=== PATIENT | female | born 1975 | race Caucasian/White ===

== ENCOUNTER → 2019-06-16 | Day surgery (SDC) | payer BC ==
[~2019-06-16] MED LIST: BCP PO; ESTARYLLA 0.251 EACH PO; FAMOTIDINE20 MG PO; FENTANYL CITRATE/PF 100MCG/2 ML INJ ONE; LIDOCAINE HCL 2% LOCAL INJ 5 ML SDV VIAL INJ ONE; MIDAZOLAM HCL 2 MG/2 ML VIAL ONE; OMEPRAZOLE40 MG PO; PROPOFOL IV EMULSION 10 MG/ML 20 ML VIAL ONE
--- OUTSIDE RECORDS SUMMARY | 2019-06-16 10:33 | XMS REPORT | Encounter Summary ---
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 Demetrio Gurrola 3 [phone] Reason for Visit heartburn/indigestion; diarrhea Instructions 1. Gastroesophageal reflux disease omeprazole 40 mg capsule,delayed release famotidine 40 mg tablet US, abdomen gastroesophageal reflux disease (GERD): care instructions gastroenterology referral 2. Body mass index 20-24 - normal Discussion Note: None recorded. Plan of Care Reminders Provider Appointments None recorded. Lab None recorded. Referral Gastroenterology Referral 04/07/2019 Procedures None recorded. Surgeries None recorded. Imaging US, Abdomen 04/07/2019 [facility] [place] [facility] [place] Medications Name Start Date famotidine 40 mg tablet Take 1 tablet every day by oral route in the evening for 30 days. [place]-Linyah 0.25 mg-35 mcg tablet Take 1 tablet every day by oral route. omeprazole 40 mg capsule,delayed release Take 1 capsule every day by oral route in the morning for 30 days. Medications Administered None recorded. Vitals Height Weight BMI Blood Pressure 5 ft 5 in 141 lbs 23.5 kg/m2 122/82 mm[Hg] Lab Results None recorded. Allergies Code Code System Name Reaction Severity Status Onset Azithromycin Hives Active 08/07/2015 Penicillins Nausea Active 08/07/2015 Problems Name Status Onset Date Source Glaucoma Active 07/20/2018 Procedures Date Name Performed by 08/23/2018 Breast Surgery Information not available 06/23/2018 Neck Spine Disk Surgery Information not available 08/23/2017 Other Information not available 08/23/2016 Breast Surgery Information not available 04/07/2019 US, Abdomen [facility] [place] [facility] [place] [address] [place] [address] (Work Place) Vaccine List Vaccine Type influenza, injectable, quadrivalent, preservative free 05/07/20170.5 mL 07/20/20180.5 mL Social History Tobacco Smoking Status Light Tobacco Smoker (1 PPW) Past Encounters 04/07/2019 Gastroesophageal Reflux Disease; Body Mass Index 20-24 - Normal Elisa Scruggs MD: [id number] [place] [address], Ph. History of Present Illness Note:43yo female presents for evaluation of stomach issues for past 4yrs. Has tested positive for H pylori in the past - treated with Abx three times. Has never been retested. Last treated in January 2018 for H pylori & feels that stomach never fully recovered.<div>"My stomach hurts all the time". After eating has to go to the bathroom. Has been having diarrhea for the past 2mo. Not constipated, but going small amounts, stool looks thin as a pencil. Often with watery, loose stool with urgency. Has 3-4 BMs per day. Noticed some blood on toilet paper yesterday.</div><div>Has never seen GI or had EGD/colonoscopy.</div ><div>For diarrhea, uses Pepto-Bismol or Imodium.</div><div>For chronic GERD takes PPI omeprazole 20mg qd for past 4yrs. Lately has been taking it everyday for past month to relieve stomachache.</div>No nausea, vomiting. Stable weight. No fever. No dysuria.

Previously:
has had trouble with h pylori treatment - she never finished it - that was 2 years ago - she is still having problems suggestive of the h pylori - lots of belching and burning - bowel movements are OK <div>can't take zpack or PCN</div><div>she has started and stopped this twice - her stomach hurts again</div> Review of Systems:ROS as noted in the HPI Review of Systems Comprehensive General Adult ROS Reported By: Patient Constitutional: Constitutional: no fever Eyes: Eyes: no vision change Cardiovascular: Cardiovascular: no chest pain Respiratory: Respiratory: no cough, no wheezing, no shortness of breath Gastrointestinal: Gastrointestinal: no constipation, normal appetite, not vomiting blood, abdominal pain, nausea, frequent diarrhea, dyspepsia, GERD Neurologic: Neurologic: no loss of consciousness, no headaches Psychiatric: Psych: no depression, no alcohol abuse, no anxiety, no suicidal thoughts Notes: no CP, SOB, no NVD , no urinary sx of dysuria, frequency Physical Exam Brief Abdominal Pain Exam Reported By: Patient Constitutional: General Appearance: well-developed, well-nourished, healthy-appearing, alert, oriented, NAD, mucous membranes moist Cardiovascular: Heart Auscultation: S1 present, S2 present, no murmurs, no click Lungs: Lungs: clear to auscultation bilaterally, no wheezing, no crackles Abdomen: Inspection and Palpation: soft, bowel sounds 4 quadrants, no tenderness, non-distended
--- OUTSIDE RECORDS SUMMARY | 2019-06-16 10:33 | XMS REPORT | Encounter Summary ---
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 Demetrio Gurrola 3 [phone] Reason for Visit sore throat; cough / congestion Instructions 1. Acute bronchitis ProAir HFA 90 mcg/actuation aerosol inhaler Cheratussin AC 10 mg-100 mg/5 mL oral liquid Depo-Medrol 80 mg/mL suspension for injection Levaquin 500 mg tablet 2. Body mass index 20-24 - normal 3. Sore throat symptom rapid strep group A, throat Discussion Note: None recorded. Patient educational handouts: No information available. Plan of Care Reminders Provider Appointments None recorded. Lab Rapid Strep Group a, Throat 02/20/2019 [facility] (p) [place] Referral None recorded. Procedures None recorded. Surgeries None recorded. Imaging None recorded. Medications Name Start Date Cheratussin AC 10 mg-100 mg/5 mL oral liquid Take 10 mL every 6-8 hours by oral route as needed for 5 days. Depo-Medrol 80 mg/mL suspension for injection Take 80 mg by injection route. Levaquin 500 mg tablet Take 1 tablet every 24 hours by oral route as directed for 10 days. [place]-Linyah 0.25 mg-35 mcg tablet Take 1 tablet every day by oral route. ProAir HFA 90 mcg/actuation aerosol inhaler Inhale 2 puffs every 6-8 hours by inhalation route as needed for 10 days. Medications Administered Name Date Depo-Medrol 80 mg/mL suspension for injection Take 80 mg by injection route. [id number] Vitals Height Weight BMI Blood Pressure 5 ft 5 in 137 lbs 22.8 kg/m2 110/82 mm[Hg] Lab Results None recorded. Allergies Code Code System Name Reaction Severity Status Onset Azithromycin Hives Active 08/07/2015 Penicillins Nausea Active 08/07/2015 Problems Name Status Onset Date Source Glaucoma Active 07/20/2018 Procedures Date Name Performed by 08/23/2018 Breast Surgery Information not available 06/23/2018 Neck Spine Disk Surgery Information not available 08/23/2017 Other Information not available 08/23/2016 Breast Surgery Information not available Vaccine List Vaccine Type influenza, injectable, quadrivalent, preservative free 05/07/20170.5 mL 07/20/20180.5 mL Social History Smoking Status Light Tobacco Smoker (1 PPW) Past Encounters 02/20/2019 Acute Bronchitis; Body Mass Index 20-24 - Normal; Sore Throat Symptom Demetrio Pretty MD: [address] [place] [address], Ph. History of Present Illness Note:Pt is complaining of runny nose,nasal congestion, productive cough and sore throat since 2 weeks ago. Denies fever, sob, wheezing or chest pain Review of Systems:ROS as noted in the HPI Review of Systems None recorded. Physical Exam General Adult Exam (male) Reported By: Patient Constitutional: General Appearance: healthy-appearing. Level of Distress: NAD Psychiatric: Insight: good judgement. Mental Status: active and alert, normal mood, normal affect. Orientation: to time, to place, to person. Memory: recent memory normal, remote memory normal Eyes: Lids and Conjunctivae: non-injected, no discharge. EOM: EOMI ENMT: Ears: TMs clear. Nose: no sinus tenderness, nares non-patent, nasal discharge, post nasal drip. Lips, Teeth, and Gums: no mouth or lip ulcers. Oropharynx: moist mucous membranes, no exudates, tonsils not enlarged, erythema Neck: Neck: supple, trachea midline. Lymph Nodes: no cervical LAD Lungs: Auscultation: rhonchi Cardiovascular: Heart Auscultation: RRR, normal S1, normal S2, no murmurs Neurologic: Gait and Station: normal gait
--- OUTSIDE RECORDS SUMMARY | 2019-06-16 10:33 | XMS REPORT | Encounter Summary ---
Author Organization Unknown Address [address] [place] [address] Phone [phone] Reason for Visit Left low back pain Instructions 1. Low back pain Tylenol-Codeine #3 300 mg-30 mg tablet Discussion Note: None recorded. Patient educational handouts: No information available. Plan of Care Reminders Provider Appointments None recorded. Lab None recorded. Referral None recorded. Procedures None recorded. Surgeries None recorded. Imaging None recorded. Medications Name Start Date [place]-Linyah 0.25 mg-35 mcg tablet Take 1 tablet every day by oral route. Tylenol-Codeine #3 300 mg-30 mg tablet Take 1 tablet twice a day by oral route as needed. valacyclovir 1 gram tablet Take one(1) Tablet by mouth EVERY DAY Medications Administered None recorded. Vitals Height Weight BMI Blood Pressure 5 ft 5 in 140 lbs 23.3 kg/m2 124/70 mm[Hg] Lab Results None recorded. Allergies Code Code System Name Reaction Severity Status Onset Azithromycin Hives Active 08/07/2015 Penicillins Nausea Active 08/07/2015 Problems Name Status Onset Date Source Glaucoma Active 07/20/2018 Procedures Date Name Performed by 06/23/2018 Neck Spine Disk Surgery Information not available 08/23/2016 Breast Surgery Information not available Vaccine List Vaccine Type influenza, injectable, quadrivalent, preservative free 05/07/20170.5 mL 07/20/20180.5 mL Social History Smoking Status Never Smoker Past Encounters 11/16/2018 Low Back Pain Kimmy Amador MD: [address] [facility], [address], [place] [address], Ph. History of Present Illness Back Pain Reported By: Patient HPI: Location: lumbar. Quality: sharp. Severity: pain level 3-7/10. Duration: chronic (> 12 weeks); months. Onset/Timing: recurrent episode. Context: atraumatic. Alleviating Factors: rest, relieved by heat; Seen by ortho for follow up on neck surgery last week. Aggravating Factors: movement/positioning. Associated Symptoms: no fever, no weak limbs Acute Low Back Pain Reported By: Patient Review of Systems Comprehensive General Adult ROS Reported By: Patient Cardiovascular: Cardiovascular: no chest pain Respiratory: Respiratory: no shortness of breath Gastrointestinal: Gastrointestinal: no abdominal pain, no nausea Musculoskeletal: Musculoskeletal: no muscle weakness Physical Exam General Adult Exam (Female), Low Back Pain Reported By: Patient Constitutional: General Appearance: healthy-appearing, well-nourished. Level of Distress: NAD. Ambulation: ambulating normally Psychiatric: Mental Status: active and alert, normal mood, normal affect. Memory: recent memory normal Neck: Neck: supple, no masses. Lymph Nodes: no cervical LAD. Thyroid: no enlargement, non-tender, no nodules Lungs: Respiratory effort: no dyspnea. Auscultation: breath sounds normal, good air movement, no wheezing, no rales/crackles Cardiovascular: Heart Auscultation: RRR, no murmurs Musculoskeletal:: Motor Strength and Tone: normal motor strength. Joints, Bones, and Muscles: normal movement of all extremities. Extremities: no edema Neurologic: Gait and Station: normal gait. Sensation: grossly intact Skin: Inspection and palpation: no rash, no lesions
[2019-06-16 13:40] VITALS: BP 108/77
== END | disposition home or self-care (01) ==
LOC: OR 10:25
PROVIDERS: ATTEND Internal Medicine
DX: K52.9 Noninfective gastroenteritis and colitis, unspecified (principal); K62.1 Rectal polyp; K29.70 Gastritis, unspecified, without bleeding; K21.9 Gastro-esophageal reflux disease without esophagitis; M54.9 Dorsalgia, unspecified; M54.2 Cervicalgia; F17.210 Nicotine dependence, cigarettes, uncomplicated; Z88.0 Allergy status to penicillin; Z88.1 Allergy status to other antibiotic agents
CPT/HCPCS: 43239; 45380; 45385; 81025; J2001; J2250; J2704; J3010